=== PATIENT | male | born 1980 | race Two or more races ===

== ENCOUNTER → 2021-05-08 | Outpatient (CLI) | payer MEDICAID ==
[2021-05-08 12:33] LABS: Basophils # (auto) 0 10 ^3/uL (0-0.2); Eosinophils # (auto) 0.1 10 ^3/uL (0-0.8); Hematocrit 44.2 % (41.0-53.0); Lymphocytes # (auto) 1.9 10 ^3/uL (0.4-5.4); Mean Corpuscular Volume 77.5 fL (80.0-100.0)
[2021-05-08 12:34] LABS: Basophils % (auto) 0.5 % (0.0-2.0); Eosinophils % (auto) 1.7 % (0.0-7.0); Hemoglobin 14.3 g/dL (13.5-17.5); Lymphocytes % (auto) 32.6 % (10.0-50.0); Mean Corpuscular Hemoglobin 25.1 pg (28.0-32.0); Mean Corpuscular Hgb Conc. 32.4 g/dL (32.0-36.0); Monocytes # (auto) 0.8 10 ^3/uL (0-1.3); Neutrophils % (auto) 51.2 % (37.0-80.0); Nucleated Red Blood Cells % 0.1 %; Red Cell Distribution Width 15.6 % (11.8-14.3); White Blood Cell 5.8 10^3/uL (4.4-10.8)
[2021-05-08 12:42] LABS: Albumin 3.8 g/dL (3.4-5.0); Bilirubin, Direct 0.2 mg/dL (0-0.2); Calcium 9.3 mg/dL (8.5-10.1); Potassium 3.9 mmol/L (3.5-5.1)
[2021-05-08 12:45] LABS: BUN/Creatinine Ratio 4.1; Bilirubin, Total 0.5 mg/dL (0.2-1.0); Total Protein 8.4 g/dL (6.4-8.2)
== END | disposition home or self-care (01) ==
LOC: LAB 12:02
PROVIDERS: ATTEND Internal Medicine
DX: R10.9 Unspecified abdominal pain (principal)
CPT/HCPCS: 36415; 80053; 80076; 85025

== ENCOUNTER → 2021-09-21 | Outpatient (CLI) | payer MEDICAID ==
[2021-09-21 09:30] LABS: Urine WBC None Seen /hpf (0 - 3)
[2021-09-21 10:52] LABS: Potassium 5.1 mmol/L (3.5-5.1)
[2021-09-21 10:59] LABS: Albumin 3.7 g/dL (3.4-5.0); BUN/Creatinine Ratio 7.3; Calcium 9.8 mg/dL (8.5-10.1)
[2021-09-21 11:01] LABS: Bilirubin, Direct 0.1 mg/dL (0-0.2); Bilirubin, Total 0.5 mg/dL (0.2-1.0); Total Protein 8.5 g/dL (6.4-8.2)
[2021-09-21 11:15] LABS: Basophils # (auto) 0 10 ^3/uL (0-0.2); Eosinophils # (auto) 0 10 ^3/uL (0-0.8); Lymphocytes # (auto) 1.3 10 ^3/uL (0.4-5.4); Mean Corpuscular Hemoglobin 24.3 pg (28.0-32.0); Monocytes # (auto) 0.6 10 ^3/uL (0-1.3)
[2021-09-21 11:23] LABS: Basophils % (auto) 0.1 % (0.0-2.0); Eosinophils % (auto) 0.9 % (0.0-7.0); Hematocrit 43.9 % (41.0-53.0); Hemoglobin 13.8 g/dL (13.5-17.5); Lymphocytes % (auto) 28.8 % (10.0-50.0); Mean Corpuscular Hgb Conc. 31.5 g/dL (32.0-36.0); Mean Corpuscular Volume 77.1 fL (80.0-100.0); Monocytes % (auto) 12.6 % (0.0-12.0); Neutrophils # (auto) 2.7 10 ^3/uL (1.6-8.6); Neutrophils % (auto) 57.6 % (37.0-80.0); Nucleated Red Blood Cells % 0.1 %; Red Blood Cells 5.69 10^6/uL (4.5-5.90); Red Cell Distribution Width 15.7 % (11.8-14.3); White Blood Cell 4.6 10^3/uL (4.4-10.8)
[2021-09-21 12:56] LABS: Urine Bacteria NONE SEEN /hpf (None Seen); Urine Blood Negative /uL (Negative)
== END | disposition home or self-care (01) ==
LOC: LAB 08:56
PROVIDERS: ATTEND Internal Medicine
DX: R79.89 Other specified abnormal findings of blood chemistry (principal); M25.579 Pain in unspecified ankle and joints of unspecified foot; I10 Essential (primary) hypertension
CPT/HCPCS: 36415; 80053; 80076; 81001; 83036; 85025; 85652

== ENCOUNTER 2022-05-14 01:16 | Emergency (ER) | payer MEDICAID ==
[~2022-05-14] VITALS: Ht 172.7 cm; Wt 73.9 kg
[2022-05-14 01:35] VITALS: BP 122/88
[2022-05-14 02:34] LABS: Basophils # (auto) 0.1 10 ^3/uL (0-0.2); Lymphocytes # (auto) 4.3 10 ^3/uL (0.4-5.4); Monocytes # (auto) 1.2 10 ^3/uL (0-1.3); Monocytes % (auto) 9.4 % (0.0-12.0); Nucleated Red Blood Cells % 0.1 %; Red Cell Distribution Width 15.1 % (11.8-14.3)
[2022-05-14 02:35] LABS: Basophils % (auto) 0.6 % (0.0-2.0); Eosinophils # (auto) 0.3 10 ^3/uL (0-0.8); Eosinophils % (auto) 2.2 % (0.0-7.0); Hematocrit 44.2 % (41.0-53.0); Hemoglobin 13.9 g/dL (13.5-17.5); Lymphocytes % (auto) 34.2 % (10.0-50.0); Mean Corpuscular Hemoglobin 24.8 pg (28.0-32.0); Mean Corpuscular Hgb Conc. 31.4 g/dL (32.0-36.0); Neutrophils # (auto) 6.7 10 ^3/uL (1.6-8.6); Neutrophils % (auto) 53.6 % (37.0-80.0); Red Blood Cells 5.59 10^6/uL (4.5-5.90); White Blood Cell 12.5 10^3/uL (4.4-10.8)
[2022-05-14 02:51] LABS: Albumin 3.9 g/dL (3.4-5.0); BUN/Creatinine Ratio 6.1; Calcium 9.4 mg/dL (8.5-10.1); Potassium 4.4 mmol/L (3.5-5.1)
[2022-05-14 02:54] LABS: Bilirubin, Total 0.3 mg/dL (0.2-1.0); Total Protein 8.5 g/dL (6.4-8.2)
[2022-05-14 02:55] LABS: INR 1.04 (0.9-1.15); Partial Thromboplastin Time 30.8 sec (24.6-33.4)
[2022-05-14] MEDS ORDERED: METO25TA93 PO (16:15)
== END 2022-05-14 02:42 | disposition left against medical advice (07) ==
LOC: ER 01:16
DX: Z04.1 Encounter for examination and observation following transport accident (principal); F10.20 Alcohol dependence, uncomplicated; I10 Essential (primary) hypertension
CPT/HCPCS: 36415; 71045; 80053; 83735; 83880; 84484; 85025; 85610; 85730; 93005

== ENCOUNTER 2022-05-14 11:32 | Inpatient (IN) | payer MEDICAID ==
[~2022-05-14] VITALS: Ht 172.7 cm; Wt 75.9 kg
[2022-05-14] MEDS ORDERED: LIDOCAINE 1% HCL (LOCAL ANESTH.) INJ 20ML MDV ONE (13:56)
[2022-05-14] MEDS ORDERED: LORazepam 2MG/ML-1ML VIAL ONE (14:08)
[2022-05-14 14:10] LABS: Basophils # (auto) 0.1 10 ^3/uL (0-0.2); Eosinophils # (auto) 0.2 10 ^3/uL (0-0.8); Hematocrit 41.6 % (41.0-53.0); Lymphocytes # (auto) 2.4 10 ^3/uL (0.4-5.4); Neutrophils # (auto) 5.3 10 ^3/uL (1.6-8.6); Neutrophils % (auto) 59.1 % (37.0-80.0); Red Blood Cells 5.36 10^6/uL (4.5-5.90); Red Cell Distribution Width 15.1 % (11.8-14.3)
[2022-05-14 14:12] LABS: Basophils % (auto) 1.2 % (0.0-2.0); Eosinophils % (auto) 2.4 % (0.0-7.0); Hemoglobin 13.2 g/dL (13.5-17.5); Lymphocytes % (auto) 26.8 % (10.0-50.0); Mean Corpuscular Hemoglobin 24.6 pg (28.0-32.0); Mean Corpuscular Hgb Conc. 31.7 g/dL (32.0-36.0); Mean Corpuscular Volume 77.6 fL (80.0-100.0); Monocytes % (auto) 10.5 % (0.0-12.0)
[2022-05-14] MEDS ORDERED: methylPREDNISolone SOD SUCC 125 MG/2 ML VL ONE (14:23)
[2022-05-14] MEDS ORDERED: diphenhdrAMINE HCL 50 MG/1 ML VL ONE (14:23)
[2022-05-14 14:26] LABS: Albumin 3.5 g/dL (3.4-5.0); Calcium 9.5 mg/dL (8.5-10.1); Potassium 4.1 mmol/L (3.5-5.1)
[2022-05-14 14:29] LABS: BUN/Creatinine Ratio 7.6; Bilirubin, Total 0.3 mg/dL (0.2-1.0); Total Protein 8.5 g/dL (6.4-8.2)
[2022-05-14] MEDS ORDERED: methylPREDNISolone SOD SUCC 125 MG/2 ML VL IV ONE (15:00)
[2022-05-14] MEDS ORDERED: LORazepam 2MG/ML-1ML VIAL IV ONE (15:00)
[2022-05-14] MEDS ORDERED: diphenhdrAMINE HCL 50 MG/1 ML VL IV ONE (15:00)
[2022-05-14] MEDS ORDERED: cefTRIAXone 1GM/50ML D5W 50 ML IV ONE (15:00)
[2022-05-14] MEDS ORDERED: SODIUM CHLORIDE 0.9% 1,000 ML IVB ONE (15:30)
[2022-05-14] MEDS ORDERED: LORazepam 2MG/ML-1ML VIAL IV PRN (15:30)
[2022-05-14] MEDS ORDERED: MORPHINE SULFATE INJ 2 MG/ml SYRG IV PRN ×2 (15:30)
[2022-05-14] MEDS ORDERED: NITROGLYCERIN 0.4 MG SL TAB SL PRN (15:30)
[2022-05-14 16:13] LABS: Amylase 59 U/L (25-115); Lipase 170 U/L (73-393)
[2022-05-14] MEDS ORDERED: METO25TA93 PO (16:15)
[2022-05-14 16:20] LABS: Cholesterol 166 mg/dL (< 200)
[2022-05-14 16:22] LABS: HDL Cholesterol 77 mg/dL (40-59); LDL Cholesterol 83 mg/dL (< 100); Triglycerides 88 mg/dL (< 150)
[2022-05-14 16:23] LABS: INR 0.97 (0.9-1.15)
[2022-05-14] MEDS ORDERED: IOHEXOL 350 MG/ML 100ML IJ ONE ×2 (19:05→20:36)
[2022-05-14] MEDS: HYDROcodone-ACET 5/325MG TAB PO PRN (21:08)
[2022-05-14] MEDS: metroNIDAZOLE 500MG/100ML 100 ML IV SCH (22:03)
[2022-05-14 22:24] LABS: Urine Bacteria NONE SEEN /hpf (None Seen); Urine Blood Negative /uL (Negative); Urine Hyaline Cast FEW /lpf (0 - 2); Urine Mucus FEW (None Seen); Urine Specific Gravity 1.018 (1.001-1.035); Urine WBC <1 /hpf (0 - 3)
[2022-05-14 22:33] LABS: Barbiturate Scree,Urine NEGATIVE (NEGATIVE); Benzodiazephine Screen, Urine NEGATIVE (NEGATIVE); Cocaine Screen, Urine NEGATIVE (NEGATIVE); Opiate Scree,Urine NEGATIVE (NEGATIVE); Phencyclidine Screen, Urine NEGATIVE (NEGATIVE)
[2022-05-14 22:41] LABS: Amphetamine Screen, Urine NEGATIVE (NEGATIVE); Cannabinoid Screen, Urine POSITIVE (NEGATIVE)
[2022-05-15] VITALS (15 sets, daily range): BP systolic 102–153; BP diastolic 42–98
[2022-05-15] MEDS ORDERED: chlordiazePOXIDE HCL 25 MG CAP PO ONE (01:30)
[2022-05-15 04:41] LABS: Basophils # (auto) 0.1 10 ^3/uL (0-0.2); Basophils % (auto) 0.3 % (0.0-2.0); Eosinophils # (auto) 0 10 ^3/uL (0-0.8); Lymphocytes # (auto) 0.9 10 ^3/uL (0.4-5.4); Monocytes # (auto) 0.1 10 ^3/uL (0-1.3)
[2022-05-15 04:46] LABS: Lymphocytes % (auto) 4.2 % (10.0-50.0); Mean Corpuscular Hemoglobin 24.8 pg (28.0-32.0); Mean Corpuscular Hgb Conc. 31.9 g/dL (32.0-36.0); Mean Corpuscular Volume 77.8 fL (80.0-100.0); Monocytes % (auto) 0.6 % (0.0-12.0); Neutrophils # (auto) 20.3 10 ^3/uL (1.6-8.6); Neutrophils % (auto) 94.9 % (37.0-80.0); Red Blood Cells 5.65 10^6/uL (4.5-5.90); Red Cell Distribution Width 14.6 % (11.8-14.3); White Blood Cell 21.4 10^3/uL (4.4-10.8)
[2022-05-15 05:06] LABS: Calcium 9.1 mg/dL (8.5-10.1); Potassium 4.8 mmol/L (3.5-5.1)
[2022-05-15 05:09] LABS: BUN/Creatinine Ratio 13.2
[2022-05-15] MEDS: metroNIDAZOLE 500MG/100ML 100 ML IV SCH (07:00)
[2022-05-15] MEDS: HYDROcodone-ACET 5/325MG TAB PO PRN ×2 (08:30→20:57)
[2022-05-15] MEDS ORDERED: levoFLOXacin 500MG 100 ML IV SCH (10:00)
[2022-05-15] MEDS: FOLIC ACID 1 MG, MULTIPLE VITAMIN 10 ML, THIAMINE INJ 100 MG in SODIUM CHLORIDE 0.9% 1,... INJ SCH (12:00)
[2022-05-15] MEDS ORDERED: LIDOCAINE 2% (LOCAL ANESTH.) PF 5ml SDV ONE (12:53)
[2022-05-15] MEDS ORDERED: HYDROcodone-ACET 10/325MG TAB PO PRN (13:15)
[2022-05-15] MEDS ORDERED: NICOTINE 21MG/24 HR TOPICAL PATCH TD ONE ×2 (15:30→16:45)
[2022-05-15] MEDS ORDERED: MORPHINE SULFATE INJ 2 MG/ml SYRG IV PRN (17:15)
[2022-05-15] MEDS: GABAPENTIN 300 MG CAP PO SCH (22:37)
[2022-05-16] VITALS (16 sets, daily range): BP systolic 129–183; BP diastolic 55–120
[2022-05-16] MEDS: GABAPENTIN 300 MG CAP PO SCH ×3 (06:00→21:38)
[2022-05-16 08:13] LABS: Basophils # (auto) 0 10 ^3/uL (0-0.2); Basophils % (auto) 0.4 % (0.0-2.0); Lymphocytes # (auto) 1.3 10 ^3/uL (0.4-5.4); Monocytes # (auto) 0.7 10 ^3/uL (0-1.3)
[2022-05-16 08:21] LABS: Eosinophils # (auto) 0.1 10 ^3/uL (0-0.8); Eosinophils % (auto) 0.6 % (0.0-7.0); Hematocrit 45.2 % (41.0-53.0); Hemoglobin 14.3 g/dL (13.5-17.5); Lymphocytes % (auto) 11.7 % (10.0-50.0); Mean Corpuscular Hemoglobin 24.5 pg (28.0-32.0); Mean Corpuscular Hgb Conc. 31.6 g/dL (32.0-36.0); Mean Corpuscular Volume 77.5 fL (80.0-100.0); Monocytes % (auto) 6.8 % (0.0-12.0); Neutrophils # (auto) 8.8 10 ^3/uL (1.6-8.6); Neutrophils % (auto) 80.5 % (37.0-80.0); Red Blood Cells 5.83 10^6/uL (4.5-5.90); Red Cell Distribution Width 14.7 % (11.8-14.3); White Blood Cell 10.9 10^3/uL (4.4-10.8)
[2022-05-16 08:46] LABS: BUN/Creatinine Ratio 14.5; Calcium 9.5 mg/dL (8.5-10.1); Potassium 4.7 mmol/L (3.5-5.1)
[2022-05-16] MEDS: ACETAMINOPHEN 325 MG TAB PO PRN (09:21)
[2022-05-16] MEDS: NICOTINE 21MG/24 HR TOPICAL PATCH TD SCH (09:55)
[2022-05-16] MEDS: cefTRIAXone 1GM/50ML D5W 50 ML IV SCH (09:56)
[2022-05-16] MEDS ORDERED: NICOTINE 21MG/24 HR TOPICAL PATCH TD SCH (10:00)
[2022-05-16] MEDS: FOLIC ACID 1 MG, MULTIPLE VITAMIN 10 ML, THIAMINE INJ 100 MG in SODIUM CHLORIDE 0.9% 1,... INJ SCH (12:00)
[2022-05-16] MEDS ORDERED: NIFEdipine ER 30 MG TAB PO ONE (12:45)
[2022-05-16] MEDS: METOPROLOL SUCCINATE XL 50 MG TAB PO SCH (17:38)
[2022-05-16] MEDS: HYDROcodone-ACET 5/325MG TAB PO PRN (20:31)
[2022-05-17 05:04] VITALS: BP 135/93
[2022-05-17 05:26] LABS: Potassium 3.7 mmol/L (3.5-5.1)
[2022-05-17 05:31] LABS: Albumin 2.7 g/dL (3.4-5.0); BUN/Creatinine Ratio 7.9
[2022-05-17 05:33] LABS: Bilirubin, Total 0.6 mg/dL (0.2-1.0); Total Protein 6.9 g/dL (6.4-8.2)
[2022-05-17] MEDS: GABAPENTIN 300 MG CAP PO SCH ×3 (06:03→21:58)
[2022-05-17 08:00] VITALS: BP 142/93
[2022-05-17 09:00] VITALS: BP_SYST 116; BP_SYST 142; BP_DIAS 79; BP_DIAS 93
[2022-05-17] MEDS ORDERED: cefTRIAXone 1GM/50ML D5W 50 ML IV SCH (09:00)
[2022-05-17] MEDS: NIFEdipine ER 30 MG TAB PO SCH (09:23)
[2022-05-17] MEDS: cefTRIAXone 1GM/50ML D5W 50 ML IV SCH (09:23)
[2022-05-17] MEDS: NICOTINE 21MG/24 HR TOPICAL PATCH TD SCH (09:24)
[2022-05-17 13:00] VITALS: BP 133/94
[2022-05-17] MEDS: FOLIC ACID 1 MG, MULTIPLE VITAMIN 10 ML, THIAMINE INJ 100 MG in SODIUM CHLORIDE 0.9% 1,... INJ SCH (13:28)
[2022-05-17 17:00] VITALS: BP 128/81
[2022-05-17] MEDS: METOPROLOL SUCCINATE XL 50 MG TAB PO SCH (17:25)
[2022-05-17] MEDS: ACETAMINOPHEN 325 MG TAB PO PRN (17:26)
[2022-05-17 20:20] VITALS: BP 149/95
[2022-05-18 05:18] VITALS: BP 139/98
[2022-05-18] MEDS: GABAPENTIN 300 MG CAP PO SCH ×3 (06:23→21:04)
[2022-05-18] MEDS: ACETAMINOPHEN 325 MG TAB PO PRN ×3 (06:25→21:05)
[2022-05-18 09:00] VITALS: BP 128/96
[2022-05-18] MEDS: cefTRIAXone 1GM/50ML D5W 50 ML IV SCH (09:38)
[2022-05-18] MEDS: NIFEdipine ER 30 MG TAB PO SCH (09:40)
[2022-05-18] MEDS: NICOTINE 21MG/24 HR TOPICAL PATCH TD SCH (09:42)
[2022-05-18] MEDS: FOLIC ACID 1 MG, MULTIPLE VITAMIN 10 ML, THIAMINE INJ 100 MG in SODIUM CHLORIDE 0.9% 1,... INJ SCH (12:15)
[2022-05-18 13:00] VITALS: BP 125/93
[2022-05-18 17:00] VITALS: BP 141/84
[2022-05-18] MEDS: METOPROLOL SUCCINATE XL 50 MG TAB PO SCH (17:19)
[2022-05-18 22:00] VITALS: BP 134/87
[2022-05-19 05:00] VITALS: BP 133/83
[2022-05-19] MEDS: GABAPENTIN 300 MG CAP PO SCH ×3 (07:21→21:19)
[2022-05-19 09:00] VITALS: BP 135/97
[2022-05-19] MEDS: cefTRIAXone 1GM/50ML D5W 50 ML IV SCH (09:07)
[2022-05-19] MEDS: NICOTINE 21MG/24 HR TOPICAL PATCH TD SCH (09:07)
[2022-05-19] MEDS: NIFEdipine ER 30 MG TAB PO SCH (09:08)
[2022-05-19] MEDS: FOLIC ACID 1 MG, MULTIPLE VITAMIN 10 ML, THIAMINE INJ 100 MG in SODIUM CHLORIDE 0.9% 1,... INJ SCH (11:49)
[2022-05-19 13:00] VITALS: BP 135/97
[2022-05-19 17:00] VITALS: BP 161/83
[2022-05-19] MEDS: METOPROLOL SUCCINATE XL 50 MG TAB PO SCH (17:01)
[2022-05-19] MEDS: ACETAMINOPHEN 325 MG TAB PO PRN (21:18)
[2022-05-19 22:00] VITALS: BP 134/86
[2022-05-20 05:00] VITALS: BP 123/81
[2022-05-20] MEDS: GABAPENTIN 300 MG CAP PO SCH ×3 (06:00→23:09)
[2022-05-20 09:13] VITALS: BP 137/95
[2022-05-20 10:39] LABS: Eosinophils # (auto) 0.3 10 ^3/uL (0-0.8); Mean Corpuscular Volume 76.6 fL (80.0-100.0)
[2022-05-20 10:41] LABS: Basophils # (auto) 0 10 ^3/uL (0-0.2); Basophils % (auto) 0.5 % (0.0-2.0); Eosinophils % (auto) 3.5 % (0.0-7.0); Hemoglobin 13.6 g/dL (13.5-17.5); Lymphocytes # (auto) 1.7 10 ^3/uL (0.4-5.4); Lymphocytes % (auto) 17.7 % (10.0-50.0); Mean Corpuscular Hemoglobin 24.2 pg (28.0-32.0); Mean Corpuscular Hgb Conc. 31.6 g/dL (32.0-36.0); Monocytes # (auto) 0.6 10 ^3/uL (0-1.3); Neutrophils % (auto) 72.3 % (37.0-80.0); Red Blood Cells 5.61 10^6/uL (4.5-5.90); Red Cell Distribution Width 14.5 % (11.8-14.3); White Blood Cell 9.6 10^3/uL (4.4-10.8)
[2022-05-20] MEDS: cefTRIAXone 1GM/50ML D5W 50 ML IV SCH (10:49)
[2022-05-20] MEDS: NIFEdipine ER 30 MG TAB PO SCH (10:50)
[2022-05-20] MEDS: NICOTINE 21MG/24 HR TOPICAL PATCH TD SCH (10:50)
[2022-05-20 10:59] LABS: BUN/Creatinine Ratio 7.1; Potassium 4.3 mmol/L (3.5-5.1)
[2022-05-20] MEDS: FOLIC ACID 1 MG, MULTIPLE VITAMIN 10 ML, THIAMINE INJ 100 MG in SODIUM CHLORIDE 0.9% 1,... INJ SCH (12:24)
[2022-05-20 13:00] VITALS: BP 137/95
[2022-05-20 17:00] VITALS: BP 154/93
[2022-05-20] MEDS: METOPROLOL SUCCINATE XL 50 MG TAB PO SCH (17:21)
[2022-05-20 17:29] LABS: INR 1.04 (0.9-1.15); Partial Thromboplastin Time 24.2 sec (24.6-33.4)
[2022-05-20 22:00] VITALS: BP 109/54
[2022-05-21 05:00] VITALS: BP 120/80
[2022-05-21] MEDS: GABAPENTIN 300 MG CAP PO SCH (05:49)
[2022-05-21] MEDS ORDERED: MIDAZOLAM HCL 2MG/2ML 2ml VIAL (1mg/ml) ONE (07:42)
[2022-05-21] MEDS ORDERED: fentaNYL CITRATE 100 MCG/2 ML VL ONE (07:42)
[2022-05-21] MEDS ORDERED: ROCURONIUM 10MG/ML 10ML VIAL IV ONE (07:45)
[2022-05-21] MEDS ORDERED: ONDANSETRON HCL 4 MG/2 ML VIAL IV PRN ×2 (08:30→09:00)
[2022-05-21] MEDS ORDERED: NEOSTIGMINE 1 MG/ML INJ (10mg/10ML VIAL) ONE (08:49)
[2022-05-21] MEDS ORDERED: GLYCOPYRROLATE 0.2 MG/ML 1ML VIAL ONE (08:49)
[2022-05-21] MEDS ORDERED: ONDANSETRON HCL 4 MG/2 ML VIAL ONE (08:50)
[2022-05-21] MEDS ORDERED: LIDOCAINE 2% (LOCAL ANESTH.) PF 5ml SDV ONE (08:50)
[2022-05-21] MEDS ORDERED: PROPOFOL 10 MG/ML 20 ML IV ONE (08:50)
[2022-05-21] MEDS ORDERED: HYDROmorphone HCL 2 MG/ML VL/or syr IV PRN ×2 (09:00)
[2022-05-21] MEDS: PANTOPRAZOLE 40 MG/10 ML VIAL INJ IV SCH (10:22)
[2022-05-21] MEDS: NIFEdipine ER 30 MG TAB PO SCH (10:32)
[2022-05-21] MEDS: NICOTINE 21MG/24 HR TOPICAL PATCH TD SCH (10:32)
[2022-05-21] MEDS: D5W/SOD CHL 0.45%/KCL 20MEQ 1,000 ML IV SCH ×3 (10:34→21:38)
[2022-05-21] MEDS: ACETAMINOPHEN/CODEINE#3 (300/30mg) TAB PO PRN ×2 (11:43→16:47)
[2022-05-21] MEDS ORDERED: SUCCINYLCHOLINE CHLORIDE 20 MG/ML 10ML VIAL IV ONE (12:03)
[2022-05-21 13:22] VITALS: BP 144/100
[2022-05-21] MEDS: HYDROmorphone HCL 2 MG/ML VL/or syr IV PRN ×2 (13:35→19:48)
[2022-05-21] MEDS: ONDANSETRON HCL 4 MG/2 ML VIAL IV PRN (13:35)
[2022-05-21 17:00] VITALS: BP 122/67
[2022-05-21 22:00] VITALS: BP 124/79
[2022-05-22 05:24] VITALS: BP 146/80
[2022-05-22] MEDS: D5W/SOD CHL 0.45%/KCL 20MEQ 1,000 ML IV SCH (06:51)
[2022-05-22] MEDS: ONDANSETRON HCL 4 MG/2 ML VIAL IV PRN (08:06)
[2022-05-22] MEDS: HYDROmorphone HCL 2 MG/ML VL/or syr IV PRN ×2 (08:09→20:15)
[2022-05-22 09:00] VITALS: BP 140/81
[2022-05-22] MEDS ORDERED: KETOROLAC TROMETH 30 MG/ML 1ML VIAL IV ONE (09:30)
[2022-05-22] MEDS ORDERED: KETOROLAC TROMETH 30 MG/ML 1ML VIAL IV PRN (09:30)
[2022-05-22] MEDS: PANTOPRAZOLE 40 MG/10 ML VIAL INJ IV SCH (10:29)
[2022-05-22] MEDS: NIFEdipine ER 30 MG TAB PO SCH (10:30)
[2022-05-22] MEDS: NICOTINE 21MG/24 HR TOPICAL PATCH TD SCH (10:30)
[2022-05-22 13:00] VITALS: BP 124/84
[2022-05-22] MEDS: ACETAMINOPHEN/CODEINE#3 (300/30mg) TAB PO PRN (13:54)
[2022-05-22 17:00] VITALS: BP 119/82
[2022-05-22 22:00] VITALS: BP 147/89
[2022-05-23] VITALS (9 sets, daily range): BP systolic 128–164; BP diastolic 80–99
[2022-05-23] MEDS: HYDROmorphone HCL 2 MG/ML VL/or syr IV PRN ×3 (02:58→22:54)
[2022-05-23] MEDS: D5W/SOD CHL 0.45%/KCL 20MEQ 1,000 ML IV SCH ×3 (02:59→20:30)
[2022-05-23] MEDS: PANTOPRAZOLE 40 MG/10 ML VIAL INJ IV SCH (09:32)
[2022-05-23] MEDS: NICOTINE 21MG/24 HR TOPICAL PATCH TD SCH (09:32)
[2022-05-23] MEDS: NIFEdipine ER 30 MG TAB PO SCH (09:32)
== END 2022-05-24 00:15 | disposition short-term general hospital (02) | DRG 143 ==
LOC: ER 11:32 → TELE 15:25 → DOU IN ICU 05-15 05:22 → TELE-CENTR 05-16 18:00 → TELE-WESTW 05-20 01:39
PROVIDERS: ADMIT Registered Nurse; ATTEND Hospitalist
PROC: 0W9930Z Drainage of Right Pleural Cavity with Drainage Device, Percutaneous Approach (ICD-10-PCS; principal; 2022-05-15)
PROC: 0W994ZZ Drainage of Right Pleural Cavity, Percutaneous Endoscopic Approach (ICD-10-PCS; 2022-05-21)
DX: J93.83 Other pneumothorax (principal); J96.01 Acute respiratory failure with hypoxia; K70.30 Alcoholic cirrhosis of liver without ascites; E88.09 Other disorders of plasma-protein metabolism, not elsewhere classified; E78.5 Hyperlipidemia, unspecified; F19.10 Other psychoactive substance abuse, uncomplicated; F17.210 Nicotine dependence, cigarettes, uncomplicated; Z20.822 Contact with and (suspected) exposure to COVID-19; D72.829 Elevated white blood cell count, unspecified; I10 Essential (primary) hypertension
CPT/HCPCS: 36415; 36600; 71045; 71260; 71275; 76705; 80048; 80053; 80061; 80307; 80320; 81001; 82140; 82150; 82805; 83036; 83690; 83735; 85025; 85610; 85730; 86850; 86900; 86901; 87040; 87070; 87077; 87081; 87186; 87205; 87426; 96365; 96375; 97163; C9113; G0378; J0330; J0696; J1885; J1956; J2001; J2250; J2405; J2704; J3490

== ENCOUNTER 2022-06-03 00:10 | Emergency (ER) | payer MEDICAID ==
[~2022-06-03] VITALS: Ht 175.3 cm; Wt 77.3 kg
[2022-06-03 00:21] VITALS: BP 123/76
== END 2022-06-03 01:22 | disposition left against medical advice (07) ==
LOC: ER 00:10 → EEVIPCON 00:10 → ER 01:21
DX: Z04.1 Encounter for examination and observation following transport accident (principal); I10 Essential (primary) hypertension; F17.210 Nicotine dependence, cigarettes, uncomplicated; F12.10 Cannabis abuse, uncomplicated